=== PATIENT | male | born 1930 | race Caucasian/White ===

== ENCOUNTER 2016-10-10 06:01 | Day surgery (SDC) | payer MEDICARE, OTHER ==
[~2016-10-10] VITALS: Ht 162.6 cm; Wt 55.6 kg
--- NOTE | ~2016-10-10 | OR ---
PATIENT'S NAME: FANNIE PRESCOTT [facility] AGE: 86 Y [address] ROOM: [address] [place], [place] [address] LOCATION: [facility] – [place] ADMIT DATE: 10/10/2016 OR/Procedure Report DISCHARGE DATE: FAMILY PHYSICIAN: Matt Mueller MD ATTENDING PHYSICIAN: Roque Engel SURGEON: Roque Engel MD MOLD SHEET CLEANER: Tiki Bui, Credit Products Officer 3. DATE OF PROCEDURE: 10/10/2016 PREOPERATIVE DIAGNOSIS: Symptomatic reducible right inguinal hernia. POSTOPERATIVE DIAGNOSIS: Right inguinal hernia with large direct defect. PROCEDURE PERFORMED: Right inguinal herniorrhaphy with ProLoop large mesh plug and patch onlay of inguinal floor. ANESTHESIA: IV sedation with 24 mL of 1:1 mixture of 0.5% Marcaine with epinephrine/1% Xylocaine. SPECIMEN: None. COMPLICATIONS: None. ESTIMATED BLOOD LOSS: Minimal. INDICATIONS: The patient is a pleasant 86-year-old young man who is very thin and has a symptomatic enlargement of the right inguinal hernia which has been present for some time. We discussed observation versus surgical repair. He was adamant about repairing that. DESCRIPTION OF PROCEDURE: After informed consent, the patient was taken to the operating room, and after IV sedation, the anterior right groin and abdominal wall were prepped and draped into a sterile field. A time-out was performed. We confirmed the patient, planned procedure, and administration of preop antibiotics. The local anesthetic was infiltrated throughout the procedure. An incision was made above and parallel to the right inguinal ligament, carried down through Sharyn's fascia. We incised the external oblique and opened it through the external ring. We got control around the cord and the ilioinguinal nerve with the [place] drain. We took a small cord lipoma off. There was no indirect hernia sac. The defect was a large direct medial floor defect which was essentially blown out. The attenuated aponeurosis was scored. We created a properitoneal space and placed our large plug down into it. We sewed it down to Nick's inferiorly and above to the conjoint tendon. Preshaped keyhole mesh was then laid over the floor, sewed down to the pubic tubercle with 2-0 Nurolon, down to Nick's with a PATIENT'S NAME: FANNIE PRESCOTT [facility] AGE: 86 Y [address] ROOM: [address] [address] LOCATION: [facility] – [place] ADMIT DATE: 10/10/2016 OR/Procedure Report DISCHARGE DATE: FAMILY PHYSICIAN: Matt Mueller MD ATTENDING PHYSICIAN: Roque Engel transition stitch up to the shelving edge of the inguinal ligament, progressed lateral to the internal ring. Above, it was tacked down to the internal oblique aponeuroses. The nerve and the cord structures went through the defect in the mesh. The patient had extreme laxity of the abdominal wall but a good repair was noted. We closed the external oblique with 2-0 Vicryl, Sharyn's with 3-0 Vicryl, and the skin closed with subcuticular 4-0 Vicryl. Steri-Strips and sterile dressings applied. The patient tolerated the procedure well and transferred to recovery room in stable condition. ROQUE ENGEL MD WTS/modl /[id number] d: 10/10/16 1234 t: 10/26/16 0901, OPERATIVE SUMMARY
[~2016-10-10 06:01] MED LIST: ALEVE220 MG PO; ANTIVERT **IA12.5 MG PO; CINNAMON500 MG PO; COUMADIN6 MG PO; GLUCOPHAGE500 MG PO; GLUCOSAMINE &1 EACH PO; HYDROCODON-ACE1 EAC4 PO; ISOPTO TEARS15 ML OPHTH; LOPRESSOR25 MG PO; LUBRICANT EYE D15 M1 OPHTH; NEURONTIN300 MG PO; OCEAN NASAL) (A44 ML NOSE; PRINIVIL OR ZES10 MG PO; PROSCAR5 MG PO; THERA-VITE W/ B1 TAB PO; ZOCOR80 MG PO
[2016-10-10 06:57] LABS: BASOPHIL % 0.7 %; EOSINOPHIL # 0.1 K/uL (0.0-0.5); EOSINOPHIL % 1.4 %; HEMATOCRIT 39.4 % (33.0-50.0); HEMOGLOBIN 13.6 g/dL (11.0-16.0); IMMATURE GRANULOCYTE % 0.2 %; LYMPHOCYTE # 1.4 K/uL (0.8-4.0); LYMPHOCYTE % 31.6 %; MCHC 34.5 gm/dL (32.0-36.5); MONOCYTE # 0.6 K/uL (0.0-1.0); MONOCYTE % 13.1 %; MPV 10.5 fl (9.4-12.4); NEUTROPHIL # (ANC) 2.3 K/uL (1.4-9.0); NRBC % 0 /100WBC (0-0.00); PLATELET COUNT 171 K/uL (150-450); RBC 4.53 M/uL (3.50-5.50); RDW-CV 12.8 % (11.9-14.6); WBC 4.3 K/uL (4.0-11.0)
[2016-10-10 07:04] LABS: INR - (THERAPEUTIC) 1.05 (0.92-1.07)
[2016-10-10 07:10] LABS: ANION GAP 11.8 (10.0-19.0); CALCIUM 8.7 mg/dL (8.5-10.5); CREATININE 1.4 mg/dL (0.6-1.3); PHOSPHORUS 3.1 mg/dL (2.5-4.9); POTASSIUM 3.8 mMol/L (3.7-5.1)
--- NOTE | 2016-10-10 19:49 | NUR ---
Significant Event: Pt came from PACU at 1130. Pt is alert and oriented. He has a gauze tegaderm dressing to right lower abdomen/groin area that is c/d/i. Slight swelling to area noted at 1800. Ice pack placed. PT has ambulated in the mckeon x 1 and up to the bathroom x 3. Pt able to urinate adequate amt but has trouble maintaining a constant stream. Pt has had clear liq without nausea or vomiting. IV saline locked.
--- NOTE | 2016-10-11 04:19 | NUR ---
Pt. alert and oriented but forgetful. RA. VSS. Postop from R0 inguinal hernia repair. Regular diet - good portion of supper ate. SBA. IV to L) forearm - saline locked. Did not sleep much this shift. C/O of indegestion - gave some milk. Incision x1 in groin area. C/O of pain most of shift but pain pills did not seem to help much. Much education on why he is having pain - still asking questions. Ice on most of shift. Cooperative and pleasant with all cares.
--- NOTE | 2016-10-11 10:31 | NUR ---
Significant Event: Alert and oriented. Ambulates ind t/o room. VS WNL. AFebrile. Gauze and tegaderm CDI to R) lower abd/groin. CSMs WNL. Wynot 1 tab given PRN this am. Ate well for breakfast. Discharged home to self care. Accompanied by [place]. F/u with Dr. Patel. Follow up:
--- NOTE | 2016-10-11 18:04 | NUR ---
DISCHARGE: Pt. and family were explained discharge instructions, hernia d/c instructions, fall precautions, and incision care. Verbalized understanding of instructions, no questions or concerns. IV removed by primary nurse. Left at 1030 with family to return home, taken to front door by aide. Left with all belongings and prescriptions.
== END 2016-10-11 10:20 | disposition disaster alternative care site (69) ==
LOC: GMSU 06:01 → GSDC 06:01 → GMSU 11:59 → GPOC 17:00 → GSDC 10-11 10:20
PROVIDERS: Surgery
PROC: 0YU50JZ Supplement Right Inguinal Region with Synthetic Substitute, Open Approach (ICD-10-PCS; principal; 2016-10-10)
DX: K40.90 Unilateral inguinal hernia, without obstruction or gangrene, not specified as recurrent (principal); K21.9 Gastro-esophageal reflux disease without esophagitis; F41.9 Anxiety disorder, unspecified; I25.10 Atherosclerotic heart disease of native coronary artery without angina pectoris; E78.00 Pure hypercholesterolemia, unspecified; I25.2 Old myocardial infarction; I48.91 Unspecified atrial fibrillation; E11.22 Type 2 diabetes mellitus with diabetic chronic kidney disease; I12.9 Hypertensive chronic kidney disease with stage 1 through stage 4 chronic kidney disease, or unspecified chronic kidney disease; N18.9 Chronic kidney disease, unspecified; E78.5 Hyperlipidemia, unspecified; Z98.890 Other specified postprocedural states; Z95.1 Presence of aortocoronary bypass graft; Z98.42 Cataract extraction status, left eye; Z96.642 Presence of left artificial hip joint; Z90.49 Acquired absence of other specified parts of digestive tract; Z79.891 Long term (current) use of opiate analgesic; Z79.01 Long term (current) use of anticoagulants; Z79.899 Other long term (current) drug therapy
CPT/HCPCS: C1781; J0690; J2001; J7030